=== PATIENT | female | born 1995 | race African-American/Black ===

== ENCOUNTER 2018-10-02 06:01 | Inpatient (IN) ==
[2018-10-02] MEDS ORDERED: FAMOTIDINE 20 MG/2 ML VIAL IV ONE (06:13)
[2018-10-02] MEDS ORDERED: CITRIC ACID/SODIUM CITRATE 30 ML UDCUP PO ONE (06:13)
[2018-10-02] MEDS ORDERED: ceFAZolin 2,000 MG in PREMIX 1 EACH IV ONE (06:13)
[2018-10-02] MEDS ORDERED: OXYTOCIN 10 UNIT/ML VIAL IM ONE (06:15)
[2018-10-02] MEDS ORDERED: OXYTOCIN/LR 30 UNIT/1,000 ML BAG IV ONE (06:15)
[2018-10-02 06:40] LABS: Basophils % 0.3 % (0.0-0.8); Eosinophils # 0.1 10*3/uL (0.0-0.87); Eosinophils % 1.1 % (0.00-10.9); Hematocrit 29.8 VOL% (35.7-47.0); Hemoglobin 9.7 GM/DL (12.0-16.0); Immature Granulocytes % 0.6 %; Immature Granulocytes Absolute 0.07 #; Lymphocytes # 2.9 10*3/uL (1.4-4.0); Lymphocytes % 24.8 % (21.3-54.2); Mean Corpuscular HGB Conc 32.6 GM/DL (32-36); Mean Corpuscular Hemoglobin 27 PG (27-34); Mean Corpuscular Volume 83.9 FL (87-102); Mean Platelet Volume 10.9 FL (9.6-12.0); Monocytes % 8.6 % (1.7-12.7); Neutrophils # 7.6 10*3/uL (1.4-7.4); Neutrophils % 64.6 % (38.7-73.9); Platelet Count 236 T/CUMM (130-400); Red Blood Count 3.55 MC/CUMM (3.8-5.5); White Blood Count 11.7 T/CUMM (4-12)
[2018-10-02] MEDS: LACTATED RINGERS 1,000 ML IV SCH ×2 (06:50→07:35)
[2018-10-02] MEDS ORDERED: BUPIVACAINE SPINAL 0.75% 2 ML AMP SPINAL ONE (06:55)
[2018-10-02 09:45] LABS: Cord Arterial Blood HCO3 21.9 MMOL/L
[2018-10-02 09:48] LABS: Cord Venous Blood HCO3 23.3 MMOL/L; Cord Venous Blood PCO2 47.6 MMHG
[2018-10-02 09:49] LABS: Apearance,Urine CLEAR (Clear); Bilirubin,Urine Negative (Negative); Blood, Urine Small mg/dL (Negative); Glucose,Urine (UA) Negative (Negative); Ketones,Urine Negative (Negative); Mucus,Urine Moderate /LPF (Occasional); Nitrite,Urine Negative (Negative); Protein,Urine Negative; RBC,Urine 3 /HPF (0-4); Squamous Epithelial Cell,Urine Occasional /HPF (0-10); Urine Color Yellow (Yellow); Urine Specific Gravity 1.019 (1.001-1.035); Urine Urobilinogen < 2.0 EU/DL (0.2-1.0); WBC,Urine 1 /HPF (0-6)
[2018-10-02] MEDS ORDERED: SIMETHICONE CHEW 80 MG TABLET PO PRN (09:51)
[2018-10-02] MEDS ORDERED: ACETAMINOPHEN 325 MG TABLET PO PRN (09:51)
[2018-10-02] MEDS ORDERED: ONDANSETRON 4 MG/2 ML VIAL IV PRN (09:51)
[2018-10-02] MEDS ORDERED: OXYTOCIN/LR 20 UNIT/1,000 ML BAG IV ONE (09:51)
[2018-10-02] MEDS ORDERED: RHO(D) IMMUNE GLOBULIN 300 MCG SYRINGE IM ONE (09:51)
[2018-10-02] MEDS ORDERED: MAGNESIUM HYDROXIDE SUSP 30 ML UDCUP PO PRN (09:51)
[2018-10-02] MEDS ORDERED: MORPHINE 10 MG/10 ML VIAL ONE (09:59)
[2018-10-02] MEDS ORDERED: LACTATED RINGERS 1,000 ML IV ONE (10:00)
[2018-10-02] MEDS ORDERED: ONDANSETRON 4 MG/2 ML VIAL ONE (10:00)
[2018-10-02] MEDS ORDERED: PHENYLEPHRINE 1 MG/10 ML SYRINGE IV ONE (10:00)
[2018-10-02] MEDS ORDERED: LACTATED RINGERS 1,000 ML IV SCH ×2 (10:00→23:45)
[2018-10-02] MEDS ORDERED: DEXAMETHASONE 4 MG/1 ML VIAL ONE (10:00)
[2018-10-02] MEDS: ceFAZolin 1,000 MG in SYRINGE 1 EACH IV SCH (17:25)
[2018-10-02 18:19] LABS: Basophils % 0.1 % (0.0-0.8); Hematocrit 29.4 VOL% (35.7-47.0); Hemoglobin 9.5 GM/DL (12.0-16.0); Immature Granulocytes % 0.6 %; Lymphocytes % 6.4 % (21.3-54.2); Mean Corpuscular HGB Conc 32.3 GM/DL (32-36); Mean Corpuscular Hemoglobin 28 PG (27-34); Mean Corpuscular Volume 85.2 FL (87-102); Mean Platelet Volume 11.3 FL (9.6-12.0); Monocytes # 0.7 10*3/uL (0.11-0.8); Monocytes % 4.5 % (1.7-12.7); Neutrophils # 14.1 10*3/uL (1.4-7.4); Neutrophils % 88.4 % (38.7-73.9); Platelet Count 221 T/CUMM (130-400); Red Blood Count 3.45 MC/CUMM (3.8-5.5); Red Cell Distribution Width 12.9 % (9.3-17.3)
[2018-10-02] MEDS: DOCUSATE SODIUM 100 MG CAPSULE PO SCH (22:31)
[2018-10-02] MEDS: IBUPROFEN 800 MG TABLET PO PRN (22:37)
[2018-10-03] MEDS: ceFAZolin 1,000 MG in SYRINGE 1 EACH IV SCH (00:57)
[2018-10-03 04:57] LABS: Basophils % 0.1 % (0.0-0.8); Eosinophils % 0.3 % (0.00-10.9); Hematocrit 25.1 VOL% (35.7-47.0); Hemoglobin 7.9 GM/DL (12.0-16.0); Immature Granulocytes % 0.7 %; Immature Granulocytes Absolute 0.11 #; Lymphocytes # 2.4 10*3/uL (1.4-4.0); Lymphocytes % 15.8 % (21.3-54.2); Mean Corpuscular HGB Conc 31.5 GM/DL (32-36); Mean Corpuscular Hemoglobin 27 PG (27-34); Mean Corpuscular Volume 85.4 FL (87-102); Mean Platelet Volume 11.3 FL (9.6-12.0); Monocytes # 1.7 10*3/uL (0.11-0.8); Monocytes % 11.1 % (1.7-12.7); Neutrophils # 10.8 10*3/uL (1.4-7.4); Platelet Count 197 T/CUMM (130-400); Red Blood Count 2.94 MC/CUMM (3.8-5.5); Red Cell Distribution Width 12.9 % (9.3-17.3)
[2018-10-03] MEDS: DOCUSATE SODIUM 100 MG CAPSULE PO SCH ×2 (08:03→21:00)
[2018-10-03] MEDS: METOCLOPRAMIDE 10 MG/2 ML VIAL IV SCH ×2 (08:04→16:28)
[2018-10-03] MEDS ORDERED: SODIUM CHLORIDE 0.9% 1,000 ML IV PRN (09:28)
[2018-10-03] MEDS: FERROUS SULFATE 325 MG TABLET PO SCH ×2 (09:40→21:00)
[2018-10-03] MEDS: BUTALBITAL/ACETAMIN/CAFFEINE 50-325-40 MG TABLET PO SCH ×2 (09:40→16:27)
[2018-10-03] MEDS: MULTIVITAMIN (PRENATAL) TABLET PO SCH (14:20)
[2018-10-03] MEDS ORDERED: BISACODYL 10 MG SUPP RECTAL PRN (17:13)
[2018-10-03 18:52] LABS: Hematocrit 30.3 VOL% (35.7-47.0)
[2018-10-03 18:53] LABS: Hemoglobin 10.2 GM/DL (12.0-16.0)
[2018-10-03] MEDS: IBUPROFEN 800 MG TABLET PO PRN (22:25)
[2018-10-04] MEDS ORDERED: METOCLOPRAMIDE 10 MG TABLET PO SCH
[2018-10-04] MEDS: BUTALBITAL/ACETAMIN/CAFFEINE 50-325-40 MG TABLET PO SCH ×2 (00:43→08:55)
[2018-10-04] MEDS: IBUPROFEN 800 MG TABLET PO PRN (07:00)
[2018-10-04] MEDS: FERROUS SULFATE 325 MG TABLET PO SCH (08:55)
[2018-10-04] MEDS: MULTIVITAMIN (PRENATAL) TABLET PO SCH (08:55)
[2018-10-04] MEDS: DOCUSATE SODIUM 100 MG CAPSULE PO SCH (08:56)
[2018-10-04] MEDS ORDERED: CYCLOBENZAPRINE 10 MG TABLET PO PRN (09:39)
[2018-10-04] MEDS ORDERED: SODIUM CHLORIDE 0.9% 1,000 ML IV SCH (10:00)
[2018-10-04 11:44] VITALS: BP 118/73
== END 2018-10-04 15:25 | disposition home or self-care (01) | DRG 788 ==
LOC: N.LDOUT 06:01 → N.LD 06:04 → N.OB 13:18
PROVIDERS: ADMIT Obstetrics & Gynecology; ATTEND Obstetrics & Gynecology
PROC: LDCSECT (ICD-10-PCS; 2018-10-02 09:00)